=== PATIENT | male | born 1995 | race African-American/Black ===

== ENCOUNTER 2020-05-01 12:43 | Emergency (ER) | payer OTHER ==
[2020-05-01 13:49] VITALS: BP 120/63; PULSE 92; TEMP 98.6; BMI 48.6
== END 2020-05-01 14:30 | disposition home or self-care (01) ==
LOC: JER 12:43
DX: U07.1 COVID-19 (principal)
CPT/HCPCS: 99281-25

== ENCOUNTER 2020-05-12 15:56 | Emergency (ER) | payer OTHER ==
[2020-05-12 16:16] VITALS: BMI 48.7
[2020-05-12] MEDS ORDERED: PHENYLEPHRINE HCL 10 MG/1 ML SINGLE DOSE VIAL NR ONE (17:16)
[2020-05-12] MEDS ORDERED: PHENYLEPHRINE HCL 10 MG/1 ML SINGLE DOSE VIAL ONE (17:30)
[2020-05-12] MEDS ORDERED: SODIUM CHLORIDE 1,000 ML IV ONE (19:52)
[2020-05-12 20:21] LABS: BASO % 0.4 % (0-2.0); EOS % 0.3 % (0-4.5); HEMATOCRIT 43.8 % (35.4-49); HEMOGLOBIN 14.8 GM/dL (11.7-16.9); LYMPH % 26.1 % (8-40); MCH 28.1 pg (25.7-33.7); MCHC 33.8 g/dl (32.0-35.9); MEAN CELL VOLUME 83.3 fl (80-96); MEAN PLT VOLUME 7.9 fl (7.5-11.1); NEUT % 61.2 % (42.8-82.8); PLATELET COUNT 402 K/MM3 (134-434); RBC 5.26 M/mm3 (4.00-5.60); RDW 13.7 % (11.9-15.9); WHITE BLOOD COUNT 6.8 K/mm3 (4.0-10.0)
[2020-05-12 20:28] LABS: INR 1.19 (0.83-1.09); PROTHROMBIN TIME (PATIENT) 14.3 SEC (9.7-13.0)
[2020-05-12 20:31] LABS: ACTIVATED PTT 32.3 SECONDS (25.2-36.5)
[2020-05-12 20:39] LABS: POTASSIUM 3.8 mmol/L (3.5-5.1)
[2020-05-12 20:43] LABS: ALBUMIN 4.1 g/dl (3.4-5.0); BLOOD UREA NITROGEN 8.7 mg/dL (7-18); CALCIUM 9.4 mg/dL (8.5-10.1)
[2020-05-12 20:47] LABS: CREATININE 1.1 mg/dL (0.55-1.3)
[2020-05-12 20:48] LABS: BILIRUBIN,TOTAL 0.6 mg/dL (0.2-1); TOT PROT 7.6 g/dl (6.4-8.2)
[2020-05-13] MEDS ORDERED: SODIUM CHLORIDE 0.9% 500 ML INFUS.BAG IV ONE (00:36)
[2020-05-13 01:31] VITALS: BP 158/103; PULSE 88; TEMP 97.6
== END 2020-05-13 01:33 | disposition short-term general hospital (02) ==
LOC: JER 15:56
PROC: 3E0337Z Introduction of Electrolytic and Water Balance Substance into Peripheral Vein, Percutaneous Approach (ICD-10-PCS; principal; 2020-05-12)
DX: N48.39 Other priapism (principal)
CPT/HCPCS: 36415; 80053; 85025; 85045; 85610; 85730; 99285-25; C9803; U0003; U0005